=== PATIENT | female | born 1960 | race Caucasian/White ===

== ENCOUNTER 2024-10-12 13:22 | Emergency (ER) | payer MEDICARE, BC ==
[2024-10-12] MEDS ORDERED: Naloxone 0.4 MG/ML SDV IVPUSH PRN (14:16)
[2024-10-12] MEDS ORDERED: Lidocaine 1% 20 ML MDV INJECT ONE ×3 (14:47→15:25)
[2024-10-12] MEDS: Ondansetron 4 MG Tab.DIS PO ONE (15:05)
[2024-10-12] MEDS: Morphine 4 MG/ML Syringe IM ONE (15:07)
[2024-10-12] MEDS: Diphtheria,Pertussis(Acell),Tetanus Vaccine 0.5 ML Syringe IM ONE (15:08)
[2024-10-12] MEDS: Lidocaine 1% with EPINEPHrine 1:100,000 20 ML MDV INJECT ONE (15:14)
== END 2024-10-12 17:30 | disposition home or self-care (01) ==
LOC: JD.ED 13:22
DX: S81.812A Laceration without foreign body, left lower leg, initial encounter (principal); E11.9 Type 2 diabetes mellitus without complications; Z23 Encounter for immunization; Z88.1 Allergy status to other antibiotic agents; W18.39XA Other fall on same level, initial encounter; Y93.89 Activity, other specified
CPT/HCPCS: 12004; 90471; 90715; 96372; 99282; A9270; J2004; J2270; 99284